=== PATIENT | female | born 1945 | race Caucasian/White ===

== ENCOUNTER → 2018-12-09 12:17 | Outpatient (CLI) | payer MEDICARE, BC, SELFPAY ==
--- NOTE | 2018-12-09 12:20 | US_ITS ---
US FNA Thyroid HISTORY: Thyroid nodules, left thyroid nodule ORDERING PHYSICIAN: Santosh Barron MD PATIENT AGE: 73 years COMPARISON: 12/09/2018 TECHNIQUE: Following obtaining informed consent, using aseptic technique and local anesthesia with buffered lidocaine, fine-needle aspiration was performed of the nodule of interest using sonographic guidance. 3 passes were made into the nodule with a 25-gauge needle. Specimen was given to cytology. The patient tolerated the procedure well without evidence of immediate complications and left the ultrasound suite in stable condition. CYTOLOGY:Pending IMPRESSION: Uneventful ultrasound-guided FNA of the left thyroid nodule. Cytology pending
--- NOTE | 2018-12-09 13:17 | US_ITS ---
US thyroid HISTORY: ITS.REASON: THYROID NODULES ORDERING PHYSICIAN: Santosh Barron MD PATIENT AGE: 73 years Comparison: None FINDINGS: Thyroid measures 3.6 x 1.9 cm. There is heterogeneous echogenicity. A dominant somewhat ill-defined nodule present in the mid and lower pole of the right lobe of the thyroid gland 1.9 x 1.7 cm. This was the nodule at targeted for biopsy and demonstrated a benign follicular nodule The left lobe is 4.3 x 1.7 x 1.6 cm there is a 1.8 x 0.9 cm vague isoechoic nodule in the upper pole on the left. IMPRESSION: Vague bilateral thyroid nodules. Fine-needle aspiration was performed of the dominant nodule on the right showed benign findings
== END ==
PROVIDERS: PCP Nurse Practitioner; Visit Provider Otolaryngology
DX: E04.9 Nontoxic goiter, unspecified (principal); E06.3 Autoimmune thyroiditis; E21.3 Hyperparathyroidism, unspecified
CPT/HCPCS: 10005; 76536; 76942; 88173

== ENCOUNTER → 2018-12-17 11:50 | Outpatient (CLI) | payer MEDICARE, BC, SELFPAY ==
[2018-12-17 13:32] LABS: Free T4 (Free Thyroxine) 1.01 ng/dl (0.76-1.46); Thyroid Stimulating Hormone 3.49 uIU/ml (0.358-3.740)
[2018-12-18 17:53] LABS: Calcium, Ionized 5.6 mg/dL (4.5-5.6); Parathyroid Hormone Intact 28 pg/mL (15-65)
== END ==
PROVIDERS: Visit Provider Otolaryngology
DX: E04.9 Nontoxic goiter, unspecified (principal); E06.3 Autoimmune thyroiditis; E21.3 Hyperparathyroidism, unspecified
CPT/HCPCS: 36415; 82330; 83970; 84439; 84443